=== PATIENT | female | born 1980 | race African-American/Black ===

== ENCOUNTER 2021-04-06 02:53 | Emergency (ER) | payer MEDICARE ==
[~2021-04-06] VITALS: Ht 162.6 cm; Wt 70.0 kg
[2021-04-06] MEDS ORDERED: LEVETIRACETAM 500MG PREMIX 100 ML IV ONE (03:30)
[2021-04-06] MEDS ORDERED: KEPP500 MT (05:44)
[2021-04-06 05:52] VITALS: BP 121/85
== END 2021-04-06 05:54 | disposition home or self-care (01) ==
LOC: EDBD 02:53 → ER 03:26
DX: R56.9 Unspecified convulsions (principal); Z91.14 Patient's other noncompliance with medication regimen
CPT/HCPCS: 93005; 96365; 99284; J1953